=== PATIENT | male | born 1950 | race African-American/Black ===

== ENCOUNTER 2017-12-17 16:18 | Observation (INO) ==
[2017-12-17] MEDS ORDERED: Aspirin 325 MG Tablet PO ONE (16:36)
--- NOTE | 2017-12-17 16:39 | ED ---
HPI General Chief Complaint: Chest Pain Stated Complaint: Chest Pain Time Seen by Provider: 12/17/17 16:36 Source: patient Mode of arrival: ambulatory Limitations: no limitations History of Present Illness HPI narrative: 67-year-old male patient with history of hypertension, presents to the ER today because of substernal chest discomfort that had started while he was driving this afternoon, feels dull, currently a 3-4 out of 10. He does not know of any exacerbating alleviating factors. He denies any nausea, vomiting, shortness of breath, or other symptoms. He has had a similar symptom about 15 years back, but was told it was reflux. Complete Quality Measures for STEMI Alert Patients Related Data Home Medications Medication Instructions Recorded Confirmed omeprazole 20 mg PO DAILY 12/17/17 12/17/17 Allergies Allergy/AdvReac Type Severity Reaction Status Date / Time No Known Allergies Allergy Unverified 12/17/17 16:37 Review of Systems Except as stated in HPI: all other systems reviewed are negative PMFSH History History Provided By: Patient Medical History Medical History GERD (gastroesophageal reflux disease) (Acute) Hypertension (Acute) Social History Social History Substance History: No History of Abuse Smoking Status: Never smoker How Often Do You Have a Drink Containing Alcohol: 2 to 3 times a week Recent Travel in [place] within the Last 8 Weeks: No Recent Out of Country Travel within the Last 8 Weeks: No Exam Narrative Exam Narrative: GENERAL: Developed elderly -[place] Citizen male patient currently in mild distress. Awake and oriented 3. SKIN: Focused skin assessment warm/dry. HEAD: Atraumatic. Normocephalic. EYES: Pupils equal and round. No scleral icterus. No injection or drainage. ENT: No nasal bleeding or discharge. Mucous membranes pink and moist. NECK: Trachea midline. No JVD. Supple. CARDIOVASCULAR: Regular rate and rhythm. No murmur appreciated. RESPIRATORY: No accessory muscle use. Clear to auscultation. Breath sounds equal bilaterally. GASTROINTESTINAL: Abdomen soft, non-tender, nondistended. Hepatic and splenic margins not palpable. MUSCULOSKELETAL: No obvious deformities. No clubbing. No cyanosis. No edema. NEUROLOGICAL: Awake and alert. No obvious cranial nerve deficits. Motor grossly within normal limits. Normal speech. PSYCHIATRIC: Appropriate mood and affect; insight and judgment normal. Course Hospital Course: . Lab work was fairly unremarkable and cardiac enzymes negative. Chest x-ray was unremarkable. At this point, my plan would be to admit the patient for further evaluation and chest pain center. Patient has been aspirin and nitroglycerin in the ER. Initial Documented Vital Signs Temperature 98.1 F 12/17/17 16:24 Pulse Rate 78 12/17/17 16:24 Respiratory Rate 12 12/17/17 16:24 Blood Pressure 152/102 H 12/17/17 16:24 Pulse Oximetry 97 12/17/17 16:24 Last Documented Vital Signs Temperature 98.1 F 12/17/17 16:24 Pulse Rate 68 12/17/17 17:26 Respiratory Rate 16 12/17/17 17:26 Blood Pressure 170/99 H 12/17/17 17:26 Pulse Oximetry 98 12/17/17 17:26 Medical Decision Making Differential Diagnosis Differential Diagnosis: GERD versus gastritis versus ACS versus anxiety Lab Data Result diagrams: 12/17/17 16:50 12/17/17 16:50 Lab Results 12/17/17 12/17/17 12/17/17 Range/Units 16:50 16:50 16:50 WBC 4.6 (4.0-11.0) th/mm3 RBC 4.37 L (4.50-5.90) mil/mm3 Hgb 14.9 (13.0-17.0) gm/dL Hct 42.0 (39.0-51.0) % MCV 96.1 (80.0-100.0) fL MCH 34.2 H (27.0-34.0) pg MCHC 35.6 (32.0-36.0) % RDW 13.5 (11.6-17.2) % Plt Count 177 (150-450) th/mm3 MPV 9.0 (7.0-11.0) fL Neut % (Auto) 34.6 (16.0-70.0) % Lymph % (Auto) 53.5 H (9.0-44.0) % [place] % (Auto) 8.6 H (0.0-8.0) % Eos % (Auto) 2.5 (0.0-4.0) % Baso % (Auto) 0.8 (0.0-2.0) % Neut # (Auto) 1.6 L (1.8-7.7) th/mm3 Lymph # (Auto) 2.5 (1.0-4.8) th/mm3 [place] # (Auto) 0.4 (0.0-0.9) th/mm3 Eos # (Auto) 0.1 (0.0-0.4) th/mm3 Baso # (Auto) 0.0 (0.0-0.2) th/mm3 WBC Differential . Differential Comment Auto diff final PT 11.2 (9.8-11.6) sec INR 1.1 Ratio APTT 27.4 (24.3-30.1) sec Sodium (136-145) meq/L Potassium (3.5-5.1) meq/L Chloride (98-107) meq/L Carbon Dioxide (21.0-32.0) meq/L Anion Gap (5-15) meq/L BUN (7-18) mg/dL Creatinine (0.60-1.30) mg/dL Estimated GFR (>89) mL/min Random Glucose (74-106) mg/dL Calcium (8.5-10.1) mg/dL Magnesium 2.2 (1.5-2.5) mg/dL Total Bilirubin (0.2-1.0) mg/dL AST (15-37) U/L ALT (12-78) U/L Alkaline Phosphatase (45-117) U/L Total Creatine Kinase 197 (39-308) U/L CK-MB (CK-2) 1.6 (0.5-3.6) ng/mL Troponin I Less than 0.02 L (0.02-0.05) ng/mL Total Protein (6.4-8.2) g/dL Albumin (3.4-5.0) g/dL Lipase 119 (73-393) U/L 12/17/17 Range/Units 16:50 WBC (4.0-11.0) th/mm3 RBC (4.50-5.90) mil/mm3 Hgb (13.0-17.0) gm/dL Hct (39.0-51.0) % MCV (80.0-100.0) fL MCH (27.0-34.0) pg MCHC (32.0-36.0) % RDW (11.6-17.2) % Plt Count (150-450) th/mm3 MPV (7.0-11.0) fL Neut % (Auto) (16.0-70.0) % Lymph % (Auto) (9.0-44.0) % [place] % (Auto) (0.0-8.0) % Eos % (Auto) (0.0-4.0) % Baso % (Auto) (0.0-2.0) % Neut # (Auto) (1.8-7.7) th/mm3 Lymph # (Auto) (1.0-4.8) th/mm3 [place] # (Auto) (0.0-0.9) th/mm3 Eos # (Auto) (0.0-0.4) th/mm3 Baso # (Auto) (0.0-0.2) th/mm3 WBC Differential Differential Comment PT (9.8-11.6) sec INR Ratio APTT (24.3-30.1) sec Sodium 142 (136-145) meq/L Potassium 4.1 (3.5-5.1) meq/L Chloride 109 H (98-107) meq/L Carbon Dioxide 21.3 (21.0-32.0) meq/L Anion Gap 12 (5-15) meq/L BUN 10 (7-18) mg/dL Creatinine 1.42 H (0.60-1.30) mg/dL Estimated GFR 61 L (>89) mL/min Random Glucose 87 (74-106) mg/dL Calcium 9.0 (8.5-10.1) mg/dL Magnesium (1.5-2.5) mg/dL Total Bilirubin 0.5 (0.2-1.0) mg/dL AST 28 (15-37) U/L ALT 23 (12-78) U/L Alkaline Phosphatase 67 (45-117) U/L Total Creatine Kinase (39-308) U/L CK-MB (CK-2) (0.5-3.6) ng/mL Troponin I (0.02-0.05) ng/mL Total Protein 8.2 (6.4-8.2) g/dL Albumin 3.4 (3.4-5.0) g/dL Lipase (73-393) U/L Imaging Data Radiologist's impression: Chest X-Ray 12/17/17 16:36 CONCLUSION: Cardiomegaly. No acute pulmonary disease. Discharge Plan Discharge Disposition Patient Disposition: 30 Still Patient Discharge Condition Condition: Stable Discharge Details Anticipated Discharge Date: 12/17/17 Diagnosis: Chest pain Physicians Team ED Provider: Claudy Frost Primary Care Provider: [facility] /Orders / Referrals /Forms Prescriptions: No Action omeprazole 20 mg Capsule,Delayed Release(Dr/Ec) 20 mg PO DAILY RF: 0 Discharge Instructions Patient Printed Instructions: Chest Pain (ED) Discharge Interventions Interventions: Vital Signs Last Done: 12/17/17 17:26 Status ED Status: With Doctor
[2017-12-17 17:11] LABS: Baso % (Auto) 0.8 % (0.0-2.0); Eos # (Auto) 0.1 th/mm3 (0.0-0.4); Eos % (Auto) 2.5 % (0.0-4.0); Hemoglobin 14.9 gm/dL (13.0-17.0); Lymph # (Auto) 2.5 th/mm3 (1.0-4.8); Lymph % (Auto) 53.5 % (9.0-44.0); Mean Corpuscular HGB Conc 35.6 % (32.0-36.0); Mean Corpuscular Hemoglobin 34.2 pg (27.0-34.0); Mean Corpuscular Volume 96.1 fL (80.0-100.0); Mono # (Auto) 0.4 th/mm3 (0.0-0.9); Mono % (Auto) 8.6 % (0.0-8.0); Neut # (Auto) 1.6 th/mm3 (1.8-7.7); Neut % (Auto) 34.6 % (16.0-70.0); Platelet Count 177 th/mm3 (150-450); Red Blood Count 4.37 mil/mm3 (4.50-5.90); Red Cell Distribution Width 13.5 % (11.6-17.2); White Blood Count 4.6 th/mm3 (4.0-11.0)
--- NOTE | 2017-12-17 17:13 | XR ---
EXAM DATE: 12/17/2017 5:02 PM EDT AGE/SEX: 67 years / Male INDICATIONS: Chest pain. CLINICAL DATA: This is the patient's initial encounter. Patient reports that signs and symptoms have been present for 1 day and indicates a pain score of 7/10. MEDICAL/SURGICAL HISTORY: . Hypertension. Gastroesophageal reflux disease. None. COMPARISON: No prior exams available for comparison. FINDINGS: The cardiac silhouette is enlarged in transverse diameter. The lungs are free of acute parenchymal op acity. No effusions are identified. The aortic knob is prominent with tortuosity of the descending th oracic aorta. CONCLUSION: Cardiomegaly. No acute pulmonary disease. Electronically signed by: Sanford Hamlin MD 12/17/2017 5:12 PM EDT
[2017-12-17 17:22] LABS: Activated Partial Thrombo Time 27.4 sec (24.3-30.1); INR 1.1 Ratio; Prothrombin Time 11.2 sec (9.8-11.6)
[2017-12-17 17:34] LABS: Alanine Aminotransferase 23 U/L (12-78)
[2017-12-17 17:37] LABS: Alkaline Phosphatase 67 U/L (45-117); Total Protein 8.2 g/dL (6.4-8.2)
[2017-12-17 17:41] LABS: Albumin 3.4 g/dL (3.4-5.0); Anion Gap 12 meq/L (5-15); Aspartate Aminotransferase 28 U/L (15-37); Blood Urea Nitrogen 10 mg/dL (7-18); Carbon Dioxide 21.3 meq/L (21.0-32.0); Chloride 109 meq/L (98-107); Glomerular Filtration Rate 61 mL/min (>89); Glucose,Random 87 mg/dL (74-106); Sodium 142 meq/L (136-145)
[2017-12-17 17:42] LABS: Potassium 4.1 meq/L (3.5-5.1)
[2017-12-17] MEDS ORDERED: Acetaminophen 500 MG Tablet PO ONE (18:15)
[2017-12-17 18:24] LABS: Creatine Kinase 197 U/L (39-308); Lipase 119 U/L (73-393); Magnesium 2.2 mg/dL (1.5-2.5)
[2017-12-17 18:38] LABS: Creatine Kinase MB 1.6 ng/mL (0.5-3.6)
[2017-12-17 20:28] LABS: Troponin I 0.03 ng/mL (0.02-0.05)
[2017-12-18 00:18] LABS: Creatine Kinase 161 U/L (39-308)
[2017-12-18] MEDS ORDERED: Acetaminophen 500 MG Tablet PO PRN (07:34)
--- NOTE | 2017-12-18 08:55 | P.HPCA ---
History of Present Illness Primary Care Physician: [facility] Chief Complaint: Chest pain History of Present Illness: 67 year old male presents to Er for further evaluation of chest pain. Onset yesterday 4 PM while driving. Location substernal. Characterized as burning. No radiation. No associated symptoms of dyspnea, diaphoresis. Duration constant. Mild to moderate intensity fatigue or relieving factors. Endorses similar discomfort in the past, told in the past symptoms are acid reflux related. Endorses Protonix 40mg is prescribed daily, he takes 1-2 weekly. States recent full cardiac workup including recent myocardial perfusion study last month. Reported to be normal. Last endoscopy 2008. No recent illness or fever. - Diagnosis (1) Chest pain, atypical (2) GERD (gastroesophageal reflux disease) (3) Hypertension (4) Mild renal insufficiency Inpatient Certification: I certify that the inpatient services were ordered in accordance with Medicare regulations governing the order. This includes certification that hospital inpatient services are reasonable and necessary and in the case of services not specified as inpatient-only under 42 CFR 419.22(n), that they are appropriately provided as inpatient services in accordance to with the 2-midnight benchmark under 43 CFR 412.3(e) Estimated Total Length of Stay (Days): 1 Plans for Post Hospital Care: Home Review of Systems No: All other systems reviewed negative except as stated in HPI PMFSH - History History Provided By: Patient (Past Cardiac Testing-Recent Lexiscan completed [place] [facility] reported to be normal last month. Lexiscan 03/14/16 Questionable small perfusion defect in inferior wall towards apex at stress wtihout redistrubution , otherwise negative.) - Medical History Medical History: Medical History (Last Updated 12/17/17 @ 16:42 by Re Little) GERD (gastroesophageal reflux disease) Hypertension - Tobacco History Second Hand Smoke Exposure: No Tobacco Use In Past 30 Days: No Smoking Status: Never smoker - Alcohol History How Often Do You Have a Drink Containing Alcohol: 2 to 3 times a week - Substance Use History Substance History: No History of Abuse - Travel History History of Recent Travel: No Recent Travel in the [place] Within the Last 8 Weeks: No Recent Travel Out of the Country Within the Last 8 Weeks: No - Immunization History Tetanus Immunization: <5 Years Hx Influenza Vaccine This Season: Yes Medications and Allergies Active Medications: Active Medications Acetaminophen (Tylenol) 500 mg PO Q4H PRN PRN Reason: HEADACHE Aspirin (Aspirin) 325 mg PO DAILY [facility] Nitroglycerin (Nitrostat Sl) 0.4 mg SL Q5M PRN PRN Reason: CHEST PAIN Sodium Chloride (Ns Flush) 2 ml IV.FLUSH BID NATHALIA Last Admin: 12/18/17 02:01 Dose: Not Given Sodium Chloride (Ns Flush) 2 ml IV.FLUSH PRN PRN PRN Reason: FLUSH AFTER USING IV ACCESS REPORTS ALSO TAKES MEDICATION FOR BPH. NAME UNKNOWN. TAKES DAILY. Allergies Allergy/AdvReac Type Severity Reaction Status Date / Time No Known Allergies Allergy Unverified 12/17/17 16:37 Home Medications Medication Instructions Recorded Confirmed Type amlodipine 5 mg PO DAILY 12/18/17 12/18/17 History pantoprazole [Protonix] 40 mg PO DAILY 12/18/17 12/18/17 History Exam Vital signs: Vital Signs 12/17/17 16:24 12/17/17 16:39 12/17/17 16:40 Temperature 98.1 F Pulse Rate 78 70 Respiratory Rate 12 16 Blood Pressure 152/102 H 172/106 H Pulse Oximetry 97 97 98 12/17/17 16:53 12/17/17 17:02 12/17/17 17:26 Temperature Pulse Rate 69 68 Respiratory Rate 18 16 Blood Pressure 172/106 H 170/99 H Pulse Oximetry 97 97 98 12/17/17 19:05 12/17/17 20:00 12/17/17 23:14 Temperature 97.8 F 97.7 F Pulse Rate 69 77 62 Respiratory Rate 18 18 16 Blood Pressure 160/99 H 160/88 H 134/80 Pulse Oximetry 97 98 97 12/18/17 02:46 12/18/17 05:30 12/18/17 07:24 Temperature 98.5 F 98.1 F Pulse Rate 55 L 57 L Respiratory Rate 18 16 Blood Pressure 125/77 129/76 Pulse Oximetry 96 96 94 L Intake & Output 12/17/17 12/18/17 12/18/17 18:59 06:59 18:59 Weight 102.5 kg Narrative: 67-year-old pleasant male. - Constitutional no acute distress, cooperative - Routine HEENT Exam Head: Present: normocephalic, atraumatic Eye: Present: EOMI, PERRL ENT: Present: mucous membranes moist - Routine Neck Exam Present: supple, full ROM. Absent: JVD - Routine Chest/Breast/Axilla Exam Chest wall: Absent: tenderness - Routine Respiratory Exam Present: CTA bilaterally. Absent: rhonchi, stridor, wheezes, crackles - Routine Cardiovascular Exam Present: RRR. Absent: murmur, gallop, rubs - Routine Abdominal Exam Present: soft, normoactive bowel sounds. Absent: tenderness, distended, guarding - Routine Extremities Exam Present: full ROM, pulses intact, normal capillary refill - Routine Skin Exam Present: intact, warm, normal turgor - Routine Neurological Exam Present: alert, oriented X3, CN II-XII intact, moving all extremities, normal tone, normal speech - Routine Psychiatric Exam Present: normal affect, normal thought process, cooperative, good insight, good judgment Results 12/17/17 16:50 12/17/17 16:50 Cardiac Enzymes 12/17/17 12/17/17 12/17/17 Range/Units 16:50 16:50 19:42 AST 28 (15-37) U/L CK-MB (CK-2) 1.6 (0.5-3.6) ng/mL Troponin I Less than 0.02 L 0.03 (0.02-0.05) ng/mL 12/17/17 Range/Units 23:25 AST (15-37) U/L CK-MB (CK-2) (0.5-3.6) ng/mL Troponin I Less than 0.02 L (0.02-0.05) ng/mL Coagulation 12/17/17 Range/Units 16:50 PT 11.2 (9.8-11.6) sec APTT 27.4 (24.3-30.1) sec CBC 12/17/17 Range/Units 16:50 WBC 4.6 (4.0-11.0) th/mm3 RBC 4.37 L (4.50-5.90) mil/mm3 Hgb 14.9 (13.0-17.0) gm/dL Hct 42.0 (39.0-51.0) % Plt Count 177 (150-450) th/mm3 Neut # (Auto) 1.6 L (1.8-7.7) th/mm3 Lymph # (Auto) 2.5 (1.0-4.8) th/mm3 [place] # (Auto) 0.4 (0.0-0.9) th/mm3 Eos # (Auto) 0.1 (0.0-0.4) th/mm3 Baso # (Auto) 0.0 (0.0-0.2) th/mm3 Comprehensive Metabolic Panel 12/17/17 Range/Units 16:50 Sodium 142 (136-145) meq/L Potassium 4.1 (3.5-5.1) meq/L Chloride 109 H (98-107) meq/L Carbon Dioxide 21.3 (21.0-32.0) meq/L BUN 10 (7-18) mg/dL Creatinine 1.42 H (0.60-1.30) mg/dL Calcium 9.0 (8.5-10.1) mg/dL AST 28 (15-37) U/L ALT 23 (12-78) U/L Alkaline Phosphatase 67 (45-117) U/L Total Protein 8.2 (6.4-8.2) g/dL Albumin 3.4 (3.4-5.0) g/dL Intake and Output 12/17/17 12/18/17 12/18/17 22:59 06:59 14:59 Other: Weight 102.5 kg EKG interpretations - EKG EKG results cardiology: WNL, sinus rhythm, normal axis (NSR, nonspecific t wave changes) Caprini VTE Risk Assessment Caprini VTE Risk Assessment: Moderate/High Risk (score >= 2) Caprini Risk Assessment Model: Point Value = 1 Point Value = 2 Point Value = 3 Point Value = 5 Age 41-60 Minor surgery BMI > 25 kg/m2 Swollen legs Varicose veins or History of unexplained or recurrent spontaneous Oral contraceptives or hormone replacement Sepsis (< 1 month) Serious lung disease, including pneumonia (< 1 month) Abnormal pulmonary function Acute myocardial infarction Congestive heart failure (< 1 month) History of inflammatory bowel disease Medical patient at bed rest Age 61-74 Arthroscopic surgery Major open surgery (> 45 min) Laparoscopic surgery (> 45 min) Malignancy Confined to bed (> 72 hours) Immobilizing plaster cast Central venous access Age >= 75 History of VTE Family history of VTE Factor V Leiden Prothrombin [id number] Lupus anticoagulant Anticardiolipin antibodies Elevated serum homocysteine Heparin-induced thrombocytopenia Other congenital or acquired thrombophilia Stroke (< 1 month) Elective arthroplasty Hip, pelvis, or leg fracture Acute spinal cord injury (< 1 month) Prophylaxis Regimen: Total Risk Factor Score Risk Level Prophylaxis Regimen 0-1 Low Early ambulation 2 Moderate Order ONE of the following: *Sequential Compression Device (SCD) *Heparin 5000 units SQ BID 3-4 Higher Order ONE of the following medications: *Heparin 5000 units SQ TID *Enoxaparin/Lovenox 40 mg SQ daily (WT < 150 kg, CrCl > 30 mL/min) *Enoxaparin/Lovenox 30 mg SQ daily (WT < 150 kg, CrCl > 10-29 mL/min) *Enoxaparin/Lovenox 30 mg SQ BID (WT < 150 kg, CrCl > 30 mL/min) AND/OR *Sequential Compression Device (SCD) 5 or more Highest Order ONE of the following medications: *Heparin 5000 units SQ TID (Preferred with Epidurals) *Enoxaparin/Lovenox 40 mg SQ daily (WT < 150 kg, CrCl > 30 mL/min) *Enoxaparin/Lovenox 30 mg SQ daily (WT < 150 kg, CrCl > 10-29 mL/min) *Enoxaparin/Lovenox 30 mg SQ BID (WT < 150 kg, CrCl > 30 mL/min) AND *Sequential Compression Device (SCD) Assessment and Plan - Assessment (1) Chest pain, atypical Code(s): R07.89 - Other chest pain Status: Acute Onset Date: ~12/17/17 Plan: Admitted to chest pain center. ACS ruled out with 3 sets of EKGs and cardiac enzymes. Monitor on telemetry overnight. Seen and evaluated by Dr. Ramos. No further cardiac testing. Recently normal chemical testing completed. Discomfort appears related to his known acid reflux, especially due to prolonged symptoms. Encouraged him to follow up with [place] primary care this week and request GI follow up. Patient agreeable to plan of care and verbalizes understanding. (2) GERD (gastroesophageal reflux disease) Code(s): K21.9 - Gastro-esophageal reflux disease without esophagitis Status: Chronic Plan: Follow-up with and request GI consult. Discuss importance of following up with endoscopy due to prolonged symptoms despite patient in PPI. Encouraged reducing known food triggers. Instructed to take Protonix daily as previously prescribed. Discussed in length possible structural damage to esophagitis when reflux symptoms not controlled. Verbalized understanding and states [facility]. (3) Hypertension Code(s): I10 - Essential (primary) hypertension Status: Chronic Plan: Continue amlodipine. Importance of tight blood pressure control, especially with mild renal insufficiency noted on laboratory studies. Instructed to take amlodipine daily as previously ordered. Addressed and discussed concerns with taking blood pressure medication daily. (4) Mild renal insufficiency Code(s): N28.9 - Disorder of kidney and ureter, unspecified Status: Chronic Plan: Made aware of mild renal insufficiency. Denies taking NSAIDs frequently and reports noncompliance bp medications. Education provided on importance of tight blood pressure control in regards to renal function. (3) Hypertension Qualifiers: Hypertension type: unspecified Qualified Code(s): I10 - Essential (primary) hypertension
[2017-12-18] MEDS ORDERED: Aspirin 325 MG Tablet PO SCH (09:00)
--- NOTE | 2017-12-18 09:27 | P.PNCA ---
Subjective Interval history: Patient was presented by the nurse practitioner, documentation was reviewed, laboratory radiographic and EKG records were reviewed. The patient was seen personally in concert with the nurse practitioner and examined personally. I certify that the documentation is appropriate in coding for this visit is appropriate. Physical Exam Vital signs: Vital Signs 12/17/17 16:24 12/17/17 16:39 12/17/17 16:40 Temperature 98.1 F Pulse Rate 78 70 Respiratory Rate 12 16 Blood Pressure 152/102 H 172/106 H Pulse Oximetry 97 97 98 12/17/17 16:53 12/17/17 17:02 12/17/17 17:26 Temperature Pulse Rate 69 68 Respiratory Rate 18 16 Blood Pressure 172/106 H 170/99 H Pulse Oximetry 97 97 98 12/17/17 19:05 12/17/17 20:00 12/17/17 23:14 Temperature 97.8 F 97.7 F Pulse Rate 69 77 62 Respiratory Rate 18 18 16 Blood Pressure 160/99 H 160/88 H 134/80 Pulse Oximetry 97 98 97 12/18/17 02:46 12/18/17 05:30 12/18/17 07:24 Temperature 98.5 F 98.1 F Pulse Rate 55 L 57 L Respiratory Rate 18 16 Blood Pressure 125/77 129/76 Pulse Oximetry 96 96 94 L 12/18/17 08:56 Temperature Pulse Rate Respiratory Rate Blood Pressure Pulse Oximetry 99 Intake & Output 12/17/17 12/18/17 12/18/17 18:59 06:59 18:59 Weight 102.5 kg Narrative: Pleasant muscularly developed black male in no acute distress Neck supple no JVD masses nodes or bruits Chest clear to auscultation with no rales wheezes or rhonchi Cardiovascular reveals a regular sinus rhythm with no gallop rub or murmur Abdomen is soft nontender no guarding or rebound no masses Assessment and Plan - Plan The patient is ruled out for ACS and his symptoms are entirely consistent with chronic GERD which is documented in his history. He has consistent follow-up at the [facility] and will be discharged to follow-up at the [facility] with the suggestion that he request full GI evaluation at [facility].
--- NOTE | 2017-12-19 14:48 | ECG ---
Date Performed: 12/17/2017 Time Performed: 23:09:33 PTAGE: 67 years EKG: Sinus rhythm WITH FIRST DEGREE AV BLOCK NONSPECIFIC T-WAVE ABNORMALITY ABNORMAL ECG PREVIOUS TRACING : 12/17/2017 16.38 Since previous tracing, no significant change noted DOCTOR: Sanford Ibarra Interpretating Date/Time 12/19/2017 14:46:46
--- NOTE | 2017-12-19 14:50 | ECG ---
Date Performed: 12/17/2017 Time Performed: 16:38:05 PTAGE: 67 years EKG: Sinus rhythm WITH FIRST DEGREE AV BLOCK NONSPECIFIC T-WAVE ABNORMALITY ABNORMAL ECG INTERPRETATION BASED ON A DEF [place] AGE OF 40 YEARS NO PREVIOUS TRACING DOCTOR: Sanford Ibarra Interpretating Date/Time 12/19/2017 14:47:46
== END 2017-12-18 11:45 | disposition home or self-care (01) ==
LOC: NEPC 16:18 → NEPGCP 16:18 → NEDA 16:18 → NEPGCP 20:44
PROVIDERS: ADMIT Internal Medicine Interventional Cardiology; ATTEND Internal Medicine Interventional Cardiology
DX: I11.9 Hypertensive heart disease without heart failure; R07.89 Other chest pain; N28.9 Disorder of kidney and ureter, unspecified; Z91.14 Patient's other noncompliance with medication regimen; R53.83 Other fatigue; Z79.899 Other long term (current) drug therapy; K21.9 Gastro-esophageal reflux disease without esophagitis